=== PATIENT | female | born 1930 | race Caucasian/White ===

== ENCOUNTER → 2020-05-09 | Outpatient (CLI) | payer OTHER | LOC: US 13:25 | DX: G45.9 Transient cerebral ischemic attack, unspecified (principal); R29.818 Other symptoms and signs involving the nervous system; R20.2 Paresthesia of skin; I65.23 Occlusion and stenosis of bilateral carotid arteries; E07.89 Other specified disorders of thyroid; I63.81 Other cerebral infarction due to occlusion or stenosis of small artery | CPT/HCPCS: 70551; 93880 ==